=== PATIENT | female | born 1980 | race Caucasian/White ===

== ENCOUNTER 2017-07-29 12:27 | Emergency (ER) | payer MEDICAID ==
[~2017-07-29] VITALS: Ht 175.3 cm; Wt 54.4 kg
[2017-07-29 12:57] VITALS: BP 109/67
== END 2017-07-29 14:14 | disposition home or self-care (01) ==
LOC: ER 12:30
DX: M54.12 Radiculopathy, cervical region (principal); R09.81 Nasal congestion
CPT/HCPCS: 99283; A4606; Z7610